=== PATIENT | female | born 2000 | race Caucasian/White ===

== ENCOUNTER 2019-07-16 02:38 | Inpatient (IN) | payer MEDICAID ==
[~2019-07-16] VITALS: Ht 162.6 cm; Wt 69.8 kg
[2019-07-16] MEDS ORDERED: SODIUM CHLORIDE 0.9% 1,000 ML IV ONE (03:05)
[2019-07-16] MEDS ORDERED: ONDANSETRON HCL 4 MG/2 ML VIAL IV ONE (03:30)
[2019-07-16 03:34] LABS: Basophils # (auto) 0 uL; Basophils % (auto) 0.3 % (0.0-2.0); Eosinophils # (auto) 0 uL; Eosinophils % (auto) 0.3 % (0.0-7.0); Hematocrit 40.7 % (36.0-46.0); Hemoglobin 14.1 g/dL (12.2-16.2); Lymphocytes # (auto) 1.1 uL; Lymphocytes % (auto) 13.6 % (10.0-50.0); Mean Corpuscular Hemoglobin 31.3 pg (28.0-32.0); Mean Corpuscular Hgb Conc. 34.6 g/dL (32.0-36.0); Mean Corpuscular Volume 90.5 fL (80.0-100.0); Monocytes # (auto) 0.6 uL; Monocytes % (auto) 7.1 % (0.0-12.0); Neutrophils # (auto) 6.6 uL; Neutrophils % (auto) 78.7 % (37.0-80.0); Platelet Count (auto) 306 10^3/uL (140-450); Red Cell Distribution Width 13.2 % (11.8-14.3); White Blood Cell 8.4 10^3/uL (4.4-10.8)
[2019-07-16 03:52] LABS: Albumin 3.1 g/dL (3.4-5.0); Calcium 8.7 mg/dL (8.5-10.1); Potassium 3.8 mmol/L (3.5-5.1)
[2019-07-16 03:55] LABS: Bilirubin, Total 0.4 mg/dL (0.2-1.0); Total Protein 7.5 g/dL (6.4-8.2)
[2019-07-16] MEDS ORDERED: THIAMINE 100mg/ml INJ (200mg/2ml VIAL) IV ONE (05:30)
[2019-07-16] MEDS ORDERED: MECLIZINE HCL 25 MG TAB PO ONE (05:30)
[2019-07-16] MEDS: D5W/SOD CHLO 0.9% 1,000 ML IV SCH ×3 (07:04→16:15)
[2019-07-16] MEDS: ONDANSETRON HCL 4 MG/2 ML VIAL IV PRN ×3 (08:28→16:06)
--- NOTE | 2019-07-16 09:00 | NUR ---
MS admit from ER ORQUIDEA CURRY admitted to tele/MS after SBAR received. Patient oriented to BEBE MONAHAN, primary RN, unit, room, bed, and unit policies regarding patient care and visiting hours. Patient weighed by bedscale and encouraged to call if they need something. All questions and concerns addressed, patient verbalized understanding. Note:
[2019-07-16 09:08] LABS: Urine Bacteria NONE SEEN /hpf (None Seen); Urine Blood Negative /uL (Negative); Urine Mucus MODERATE (None Seen); Urine Specific Gravity 1.034 (1.001-1.035); Urine WBC 1 /hpf (0 - 5)
[2019-07-16] MEDS ORDERED: LEVE250T18 PO (09:10)
[2019-07-16] MEDS ORDERED: DIPH25CA66 PO (09:10)
[2019-07-16] MEDS ORDERED: ONDA-144 PO (09:10)
[2019-07-16 12:00] VITALS: BP 97/52
--- NOTE | 2019-07-16 16:05 | NUR ---
MD: Dr Dotson at bedside. Orders given.
[2019-07-16] MEDS ORDERED: PRENATAL VITAMIN TAB PO ONE (16:15)
[2019-07-16] MEDS ORDERED: ACETAMINOPHEN 500 MG TAB PO PRN (16:15)
[2019-07-16 17:00] VITALS: BP 105/52
[2019-07-16] MEDS ORDERED: ONDANSETRON HCL 4 MG/2 ML VIAL IV SCH (18:00)
--- NOTE | 2019-07-16 19:35 | NUR ---
Opening Shift Note Assumed care of patient, awake and alert. No S/S of distress/SOB. Instructed on POC and to call for assist PRN, patient verbalized understanding, call light within reach, will continue to monitor for changes Q1hr and PRN.
--- NOTE | 2019-07-16 19:41 | NUR ---
CLOSING SHIFT NOTE: Report given to NOC RNMackenzie. Endorsed care of patient.
[2019-07-16 20:00] VITALS: BP 101/60
[2019-07-16] MEDS: ONDANSETRON HCL 4 MG/2 ML VIAL IV SCH (20:01)
[2019-07-16 22:00] VITALS: BP 101/60
[2019-07-17] MEDS: D5W/SOD CHLO 0.9% 1,000 ML IV SCH ×3 (01:14→22:33)
[2019-07-17] MEDS: ONDANSETRON HCL 4 MG/2 ML VIAL IV SCH ×4 (04:42→22:33)
[2019-07-17 05:00] VITALS: BP 102/62
[2019-07-17 06:50] LABS: BUN/Creatinine Ratio 12.2; Calcium 7.7 mg/dL (8.5-10.1); Potassium 3.1 mmol/L (3.5-5.1)
--- NOTE | 2019-07-17 07:30 | NUR ---
Opening Shift Note Assuming care of patient at this time. Patient is awake and alert. Patient denies pain, but patient is complaining of nausea and poor appetite. Bed is locked and lowered with side rails up x2. Patient shows no signs or symptoms of distress or shortness of breath. Instructed patient on the plan of care for today and to call for assistance as needed. Call light within reach. Will continue to round hourly and as needed.
[2019-07-17 08:00] VITALS: BP 102/56
[2019-07-17] MEDS: PRENATAL VITAMIN TAB PO SCH (09:51)
--- NOTE | 2019-07-17 11:17 | NUR ---
Nutrition Consult/assessment Notes please see attached link for complete assessment Est. Needs based on BW (68 kg): 2683-4974 kcal (23-25 kcal/kgBW), 68-75 gms pro (1.0-1.1 gms/kgBW). Will continue to monitor pertinent labs and reassess nutrient need prn Addendum: 07/17/19 at [address] Amended: Links added.
[2019-07-17 12:00] VITALS: BP 111/69
--- NOTE | 2019-07-17 13:30 | NUR ---
Patient off Unit Patient off unit at this time. Patient wants to go visit son in ER.
--- NOTE | 2019-07-17 14:30 | NUR ---
Patient eating Patient is eating [employer]. Informed patient that she should follow doctor's orders and advance diet as tolerated. Patient states, "I told my if my stomach can handle [employer] then I am ready to go home tomorrow."
[2019-07-17 16:44] VITALS: BP 104/53
--- NOTE | 2019-07-17 18:30 | NUR ---
Second call to Dietary Made a second call to dietary at this time. Patient still has not received dinner tray. Once again, no answer. Left another message for dietary staff.
--- NOTE | 2019-07-17 19:01 | NUR ---
Closing Shift Note Patient resting in bed. Patient has not received dinner tray. Patient has not experience any nausea since the taco capellan and appears to have tolerated diet well. Will endorse care to the operations supervisor 2nd shift RN.
--- NOTE | 2019-07-17 19:30 | NUR ---
RECEIVED PATIENT FROM DAY SHIFT RN. PATIENT RESTING IN BED. NO S/S OF DISTRESS NOTED. DENIED PAIN AND NAUSEA FOR NOW. POC INSTRUCTED AND ENCOURAGED PATIENT TO CALL FOR PRESS LEADER IF NEEDED. BED IN LOWEST POSITION WITH PADDED SIDE RAILS UP X 2. CALL MEDRANO WITHIN REACH. CONTINUE TO MONITOR FOR CHANGES Q1H AND PRN.
--- NOTE | 2019-07-17 20:05 | NUR ---
RECEIVED PATIENT FROM DAY SHIFT RN. PATIENT RESTING IN BED. NO S/S OF DISTRESS NOTED. DENIED PAIN FOR NOW. DRESSING ON LEFT HIP AND SACRUM C/D/I. PATIENT HAD BM. CLEANED PATIENT AND PARTIAL LINEN CHANGED. PATIENT TOLERATED WELL. POC INSTRUCTED AND ENCOURAGED PATIENT TO CALL FOR PAPER MACHINE BACK TENDER IF NEEDED. SPECIAL MATTRESS BED IN LOWEST POSITION WITH SIDE RAILS UP X 2. CALL MEDRANO WITHIN REACH. ALARM ON. CONTINUE TO MONITOR FOR CHANGES Q1H AND PRN. Addendum: 07/17/19 at 2052 by Jesse Guzman RN WRONG NOTE
[2019-07-17 22:00] VITALS: BP 99/63
--- NOTE | 2019-07-18 01:43 | NUR ---
PATIENT SLEEPING. NO S/S OF DISTRESS NOTED. CONTINUE CARE.
[2019-07-18] MEDS: ONDANSETRON HCL 4 MG/2 ML VIAL IV SCH ×2 (03:53→09:44)
[2019-07-18 05:00] VITALS: BP 100/57
--- NOTE | 2019-07-18 08:46 | NUR ---
Opening Shift Note Assumed care of patient, awake and alert. No S/S of distress/SOB or pain. Instructed on POC and to call for assist PRN, will continue to monitor for changes Q1hr and PRN.
[2019-07-18 09:00] VITALS: BP 113/54
[2019-07-18] MEDS: D5W/SOD CHLO 0.9% 1,000 ML IV SCH (09:45)
[2019-07-18] MEDS: PRENATAL VITAMIN TAB PO SCH (10:16)
[2019-07-18 11:20] VITALS: BP 113/54
--- NOTE | 2019-07-18 11:45 | NUR ---
Discharge instructions given as ordered. Encourage to follow up with (Follow up with Dr. Connell Address : [address], [place], [place] [phone]) as instructed. All questions and concerns addressed. Patient verbalized understanding. Medication reconciliation form completed and copy given to patient. IV removed with catheter intact, pressure dressing applied. Patient taken to vehicle via wheelchair with all personal belongings, accompanied by staff and family member. No distress noted at time of departure.
== END 2019-07-18 11:45 | disposition home or self-care (01) | DRG 566 ==
LOC: ER 02:38 → OVERFLOW 02:39 → WEST WING 09:19
PROVIDERS: ADMIT Nurse Practitioner; ATTEND Obstetrics & Gynecology
DX: O21.1 Hyperemesis gravidarum with metabolic disturbance (principal); G40.909 Epilepsy, unspecified, not intractable, without status epilepticus; E16.2 Hypoglycemia, unspecified; O99.351 Diseases of the nervous system complicating pregnancy, first trimester; O99.810 Abnormal glucose complicating pregnancy; Z80.3 Family history of malignant neoplasm of breast; Z3A.13 13 weeks gestation of pregnancy; Z83.3 Family history of diabetes mellitus
CPT/HCPCS: 36415; 76801; 80048; 80053; 81001; 83690; 84702; 85025; 87081; 96361; 96365; 96375; G0378; J2405; J7042

== ENCOUNTER 2019-07-19 23:15 | Emergency (ER) | payer MEDICAID ==
[~2019-07-19] VITALS: Ht 162.6 cm; Wt 68.0 kg
[~2019-07-19 23:15] MED LIST: DIPH25CA66 PO; LEVE250T18 PO; ONDA-144 PO
[2019-07-20 00:18] LABS: Basophils # (auto) 0 uL; Basophils % (auto) 0.3 % (0.0-2.0); Eosinophils # (auto) 0 uL; Eosinophils % (auto) 0.1 % (0.0-7.0); Hematocrit 39.3 % (36.0-46.0); Hemoglobin 13.7 g/dL (12.2-16.2); Lymphocytes # (auto) 0.6 uL; Lymphocytes % (auto) 14.2 % (10.0-50.0); Mean Corpuscular Hemoglobin 31.6 pg (28.0-32.0); Mean Corpuscular Hgb Conc. 34.9 g/dL (32.0-36.0); Mean Corpuscular Volume 90.5 fL (80.0-100.0); Monocytes # (auto) 0.5 uL; Monocytes % (auto) 13.1 % (0.0-12.0); Neutrophils # (auto) 2.8 uL; Neutrophils % (auto) 72.3 % (37.0-80.0); Nucleated Red Blood Cells % 0.1 %; Platelet Count (auto) 263 10^3/uL (140-450); Red Blood Cells 4.34 10^6/uL (4.0-5.20); White Blood Cell 3.9 10^3/uL (4.4-10.8)
[2019-07-20 00:39] LABS: Albumin 3.2 g/dL (3.4-5.0); BUN/Creatinine Ratio 10.4; Calcium 8.7 mg/dL (8.5-10.1); Magnesium 2.1 mg/dL (1.6-2.6); Potassium 3.4 mmol/L (3.5-5.1)
[2019-07-20 00:41] LABS: Bilirubin, Total 0.4 mg/dL (0.2-1.0); Total Protein 7.2 g/dL (6.4-8.2)
[2019-07-20] MEDS ORDERED: SODIUM CHLORIDE 0.9% 1,000 ML IV ONE ×2 (01:30)
[2019-07-20] MEDS ORDERED: MECLIZINE HCL 25 MG TAB PO ONE (01:30)
[2019-07-20] MEDS ORDERED: THIAMINE 100mg/ml INJ (200mg/2ml VIAL) IV ONE (01:30)
[2019-07-20 02:27] LABS: Urine Bacteria NONE SEEN /hpf (None Seen); Urine Blood Negative /uL (Negative); Urine Mucus FEW (None Seen); Urine Specific Gravity 1.029 (1.001-1.035); Urine WBC 2 /hpf (0 - 5)
[2019-07-20] MEDS ORDERED: ONDANSETRON HCL 4 MG/2 ML VIAL IV ONE (03:00)
[2019-07-20 05:00] VITALS: BP 98/55
== END 2019-07-20 05:25 | disposition home or self-care (01) ==
LOC: ER 23:15
DX: O21.0 Mild hyperemesis gravidarum (principal); Z3A.13 13 weeks gestation of pregnancy; Z88.6 Allergy status to analgesic agent; Z88.8 Allergy status to other drugs, medicaments and biological substances
CPT/HCPCS: 36415; 80053; 81001; 83735; 84702; 85025; 96361; 96374; 96375; 99283; J2405; J3411; J7030; J8597